=== PATIENT | female | born 1965 | race Caucasian/White ===

== ENCOUNTER → 2017-04-21 | Outpatient (CLI) | payer BC ==
--- NOTE | 2017-04-21 13:36 | P.HPOB ---
History of Present Illness H&P Date: 04/21/17 Chief Complaint: The patient is here for her routine gynecologic exam and mammogram. This is a 51-year-old with an LMP of 2013. She is status post endometrial ablation in 2011. She feels slightly warm at night on occasion but is otherwise without complaints. She denies any postmenopausal bleeding. Review of Systems Weight has been stable. She denies respiratory, cardiac or G.I. problems. Past Medical History Past Medical History: Hyperlipidemia History of Any Multi-Drug Resistant Organisms: None Reported Past Surgical History: Breast Surgery (Right breast biopsy in 2013 which was benign.), Section ( x2), Hernia Repair, Tubal Ligation Additional Past Surgical History / Comment(s): D&C in the past. Past Psychological History: No Psychological Hx Reported Smoking Status: Never smoker Past Alcohol Use History: Occasional (Averaging 2 per month.) Past Drug Use History: None Reported Additional History: She is now working at [employer]. - Past Family History Father Family Medical History: Myocardial Infarction ([place]) Mother Family Medical History: Cancer (She believes her mother had uterine cancer.) Grandparents History Unknown: Yes Family Medical History: No Reported History Additional Family Medical History / Comment(s): Grandparents had heart disease. Medications and Allergies Home Medications and Allergies Comment(s): Vitamin D3 5000 units daily Home Medications Medication Instructions Recorded Confirmed Type Atorvastatin [Lipitor] 20 mg PO DAILY 04/21/17 04/21/17 History Exam - Vital Signs Vital signs: Blood pressure 104/67, height 5'2", weight 139 pounds, BMI 25, temperature and 96.7, pulse 64 This is a well-developed well-nourished white female who is alert and oriented times 3 in no acute distress. HEENT: Within normal limits. NECK: Supple without mass or thyromegaly. CHEST AND LUNGS: Clear to auscultation. HEART: Regular rate and rhythm. BREASTS: Are without mass or discharge. AXILLARY EXAM: Negative for adenopathy. BACK: Negative for CVA tenderness. ABDOMEN: Soft, nontender, without palpable masses. PELVIC EXAM: Normal external genitalia with minimal atrophy. Cervix and vagina appear normal. There is no unusual discharge. There is no evidence of prolapse. The uterus is midposition, nongravid size and nontender. There are no palpable adnexal masses or tenderness. RECTAL EXAM: recto vaginal exam is negative for mass or tenderness and is negative for occult blood. EXTREMITIES: Nontender. IMPRESSION: 1. 51-year-old menopausal female with normal gynecologic exam PLAN: 1. Smear was deferred since she had a normal one less than 2 years ago. 2. Self breast examination was discussed. 3. Mammogram will be done today. 4. Versus prevention was discussed. 5. She will return in one year.
--- NOTE | 2017-04-23 08:05 | MM ---
Reason for exam: screening (asymptomatic). Last mammogram was performed 7 months ago. History: Patient is postmenopausal and has history of high-risk lesion on a previous biopsy at age 47. Benign US biopsy breast VAD LT of the left breast, March 28, 2016. Excisional biopsy, March 2013. High risk right breast needle localzation of both breasts, January 24, 2013. Benign right mammotome panel of the right breast, January 03, 2013. Took hormonal contraceptives for 1 year. Physical Findings: A clinical breast exam by your physician is recommended on an annual basis and results should be correlated with mammographic findings. MG 3D Screening Mammo W/Cad Bilateral CC and MLO view(s) were taken. XCCL view(s) were taken of the right breast. Prior study comparison: September 19, 2016, left breast MG diagnostic mammo LT w CAD. March 28, 2016, left breast MG diagnostic mammo LT wo CAD. The breast tissue is heterogeneously dense. This may lower the sensitivity of mammography. There is no discrete abnormality. No significant changes when compared with prior studies. ASSESSMENT: Negative, BI-RAD 1 RECOMMENDATION: Routine screening mammogram of both breasts in 1 year.
== END | disposition home or self-care (01) ==
LOC: WWCWWP 12:31
PROVIDERS: ATTEND Obstetrics & Gynecology
DX: Z12.31 Encounter for screening mammogram for malignant neoplasm of breast (principal)
CPT/HCPCS: 77063; G0202

== ENCOUNTER → 2018-06-02 | Outpatient (CLI) | payer BC ==
[2018-06-02 08:29] VITALS: BP 112/55; PULSE 73; TEMP 96.9; BMI 25.6
--- NOTE | 2018-06-02 09:29 | P.HPOB ---
History of Present Illness H&P Date: 06/02/18 Chief Complaint: The patient is here for her routine gynecologic exam and mammogram. This is a 52-year-old 012 with an LMP of 2013. The patient is without gynecologic complaints and denies any postmenopausal bleeding. Review of Systems The patient's weight has been stable over the last year. She denies respiratory , cardiac, or G.I. problems. 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 She had an endometrial ablation in 2011. History of Any Multi-Drug Resistant Organisms: None Reported Past Surgical History: Breast Surgery (Right breast biopsy 2015), Section (x2), Hernia Repair, Tubal Ligation, Uterine Ablation (2011) Additional Past Surgical History / Comment(s): D&C in the past. Colonoscopy 2016(rec. rpt 5yrs). 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 - Past Family History Father Family Medical History: Hypertension, Myocardial Infarction ([place]) Mother Family Medical History: Cancer, Hypertension Additional Family Medical History / Comment(s): Uterine cancer in her 70s. Grandparents History Unknown: Yes Family Medical History: No Reported History Additional Family Medical History / Comment(s): Grandparents had heart disease. Medications and Allergies Home Medications Medication Instructions Recorded Confirmed Type Cholecalciferol [Vitamin D3] 1,000 unit PO DAILY 06/02/18 06/02/18 History Multivitamin [Multivitamins Adult PO DAILY 06/02/18 06/02/18 History Gummies] Allergies Allergy/AdvReac Type Severity Reaction Status Date / Time No Known Allergies Allergy Unverified 06/02/18 08:24 Exam Vital Signs Temp Pulse BP 06/02/18 08:26 96.9 F L 73 112/55 Intake and Output 06/01/18 06/02/18 06/02/18 22:59 06:59 14:59 Other: Weight 63.503 kg Height 5'2", weight 140 pounds, BMI 25.6. This is a well-developed well-nourished white female who is alert and oriented times 3 in no acute distress. HEENT: Within normal limits. NECK: Supple without mass or thyromegaly. CHEST AND LUNGS: Clear to auscultation. HEART: Regular rate and rhythm. BREASTS: Are without mass or discharge. AXILLARY EXAM: Negative for adenopathy. BACK: Negative for CVA tenderness. ABDOMEN: Soft, nontender, without palpable masses. PELVIC EXAM: Normal external genitalia with mild atrophy. Cervix and vagina appear normal with mild atrophy. The cervix appears nulliparous and is mildly stenotic. There is no unusual discharge. There is no evidence of prolapse. The uterus is midposition, nongravid size and nontender. There are no palpable adnexal masses or tenderness. RECTAL EXAM: rectovaginal exam is negative for mass or tenderness and is negative for occult blood. EXTREMITIES: Nontender. IMPRESSION: 1. 52-year-old menopausal female with normal gynecologic exam. PLAN: 1. Pap smear was performed. 2. Self breast awareness was discussed with the patient. 3. Screening mammogram will be done today. 4. Osteoporosis prevention was discussed. I have stressed the importance of adequate calcium, vitamin D and regular exercise. Recommended amounts of calcium and vitamin D were also discussed. 5. She will return in one year.
--- NOTE | 2018-06-02 11:56 | MM ---
Reason for exam: screening (asymptomatic). Last mammogram was performed 1 year and 1 month ago. History: Patient is postmenopausal and has history of high-risk lesion on a previous biopsy at age 47. Benign US biopsy breast VAD LT of the left breast, March 28, 2016. Excisional biopsy, March 2013. High risk right breast needle localzation of both breasts, January 24, 2013. Benign right mammotome panel of the right breast, January 03, 2013. Took hormonal contraceptives for 1 year. Physical Findings: A clinical breast exam by your physician is recommended on an annual basis and results should be correlated with mammographic findings. MG 3D Screening Mammo W/Cad Bilateral CC and MLO view(s) were taken. Prior study comparison: April 21, 2017, bilateral MG 3d screening mammo w/cad. September 19, 2016, left breast MG diagnostic mammo LT w CAD. The breast tissue is heterogeneously dense. This may lower the sensitivity of mammography. There are benign appearing round grouped calcifications in the right breast. Previous mammotome biopsy in the left breast. There is no discrete abnormality. ASSESSMENT: Benign, BI-RAD 2 RECOMMENDATION: Routine screening mammogram of both breasts in 1 year.
== END ==
LOC: WWCWWP 07:54
PROVIDERS: ATTEND Obstetrics & Gynecology
DX: Z12.31 Encounter for screening mammogram for malignant neoplasm of breast (principal)
CPT/HCPCS: 77063; 77067

== ENCOUNTER → 2019-07-05 | Outpatient (CLI) | payer BC ==
[2019-07-05 09:23] VITALS: BP 109/72; PULSE 84; RESP 16; TEMP 98.4
--- NOTE | 2019-07-05 09:47 | P.HPOB ---
History of Present Illness H&P Date: 07/05/19 Chief Complaint: The patient is here for her routine gynecologic exam and ma mmogram. This is a 53-year-old with an LMP of 2013. The patient is without gynecologic complaints and denies any postmenopausal bleeding. Review of Systems The patient has gained 7 pounds over the last year. She denies respiratory, cardiac, or G.I. problems. Past Medical History Past Medical History: Hyperlipidemia, Osteoarthritis (OA) Additional Past Medical History / Comment(s): Arthritis of the right hip. 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 She had an endometrial ablation in 2011. History of Any Multi-Drug Resistant Organisms: None Reported Past Surgical History: Breast Surgery, Section, Hernia Repair, Tubal Ligation, Uterine Ablation Additional Past Surgical History / Comment(s): D&C in the past. Right breast biopsy. Colonoscopy 2015(rec. rpt 5yrs). 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 - Past Family History Father Family Medical History: Hypertension, Myocardial Infarction ([place]) Mother Family Medical History: Cancer, Diabetes Mellitus, Hypertension Additional Family Medical History / Comment(s): Uterine cancer in her 70s. Grandparents History Unknown: Yes Family Medical History: No Reported History Additional Family Medical History / Comment(s): Grandparents had heart disease. Medications and Allergies Home Medications Medication Instructions Recorded Confirmed Type Cholecalciferol [Vitamin D3] 1,000 unit PO DAILY 06/02/18 07/05/19 History Multivitamin [Multivitamins Adult 1 tab PO DAILY 06/02/18 07/05/19 History Gummies] Allergies Allergy/AdvReac Type Severity Reaction Status Date / Time latex Allergy Swelling Unverified 07/05/19 09:20 Exam Vital Signs Temp Pulse Resp BP Pulse Ox 07/05/19 09:21 98.4 F 84 16 109/72 98 Intake and Output 07/04/19 07/05/19 07/05/19 22:59 06:59 14:59 Other: Weight 66.678 kg Height 5 feet 2 inches, weight 147 pounds, BMI 26.9. This is a well-developed well-nourished white female who is alert and oriented times 3 in no acute distress. HEENT: Within normal limits. NECK: Supple without mass or thyromegaly. CHEST AND LUNGS: Clear to auscultation. HEART: Regular rate and rhythm. BREASTS: Are without mass or discharge. AXILLARY EXAM: Negative for adenopathy. BACK: Negative for CVA tenderness. ABDOMEN: Soft, nontender, without palpable masses. PELVIC EXAM: Normal external genitalia with minimal atrophy. Cervix and vagina appear normal of minimal atrophy. There is no unusual discharge. There is no evidence of prolapse. The uterus is anterior, nongravid size and nontender. There are no palpable adnexal masses or tenderness. RECTAL EXAM: Rectovaginal exam is negative for mass or tenderness and is negative for occult blood. EXTREMITIES: Nontender. IMPRESSION: 1. 53-year-old menopausal female with normal gynecologic exam. PLAN: 1. Pap smear was deferred since she had a normal one on 06/02/2018. 2. Self breast awareness was discussed with the patient. 3. Screening mammogram will be done today. 4. Osteoporosis prevention was discussed. I have stressed the importance of adequate calcium, vitamin D and regular exercise. Recommended amounts of calcium and vitamin D were also discussed. 5. She was advised to return in one year for her annual well woman exam.
--- NOTE | 2019-07-05 13:44 | MM ---
Reason for exam: screening (asymptomatic). Last mammogram was performed 1 year and 1 month ago. History: Patient is postmenopausal and has history of high-risk lesion on a previous biopsy at age 47. Benign US biopsy breast VAD LT of the left breast, March 28, 2016. Excisional biopsy, March 2013. High risk right breast needle localzation of both breasts, January 24, 2013. Benign right mammotome panel of the right breast, January 03, 2013. Took hormonal contraceptives for 1 year. Physical Findings: A clinical breast exam by your physician is recommended on an annual basis and results should be correlated with mammographic findings. MG 3D Screening Mammo W/Cad Bilateral CC and MLO view(s) were taken. Prior study comparison: June 02, 2018, bilateral MG 3d screening mammo w/cad. April 21, 2017, bilateral MG 3d screening mammo w/cad. The breast tissue is heterogeneously dense. This may lower the sensitivity of mammography. Finding: There are typically benign round, grouped/clustered calcifications in the middle, posterior, central position of the right breast. Previous mammotome biopsy in the left breast. There is no discrete abnormality. ASSESSMENT: Benign, BI-RAD 2 RECOMMENDATION: Routine screening mammogram of both breasts in 1 year.
== END | disposition home or self-care (01) ==
LOC: WWCWWP 09:05
PROVIDERS: ATTEND Obstetrics & Gynecology
DX: Z12.31 Encounter for screening mammogram for malignant neoplasm of breast (principal)
CPT/HCPCS: 77063; 77067

== ENCOUNTER → 2020-09-18 | Outpatient (CLI) | payer BC ==
[2020-09-18 08:09] VITALS: BP 128/80; PULSE 81; RESP 18; TEMP 98.4
--- NOTE | 2020-09-18 08:40 | P.HPOB ---
History of Present Illness H&P Date: 09/18/20 Chief Complaint: The patient is here for her routine gynecologic exam and ma mmogram. This is a 55-year-old with an LMP of 2013. The patient is without gynecologic complaints and denies any postmenopausal bleeding. Review of Systems The patient's weight has been stable over the last year. She denies respiratory, cardiac, or G.I. problems. Past Medical History Past Medical History: Hyperlipidemia, Osteoarthritis (OA) Additional Past Medical History / Comment(s): Arthritis of the right hip. 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 She had an endometrial ablation in 2011. History of Any Multi-Drug Resistant Organisms: None Reported Past Surgical History: Breast Surgery, Section, Hernia Repair, Tubal Ligation, Uterine Ablation Additional Past Surgical History / Comment(s): D&C in the past. Right breast biopsy. Colonoscopy 2015(rec. rpt 5yrs). 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 - Past Family History Father Family Medical History: Hypertension, Myocardial Infarction ([place]) Mother Family Medical History: Cancer, Diabetes Mellitus, Hypertension Additional Family Medical History / Comment(s): Uterine cancer in her 70s. Grandparents History Unknown: Yes Family Medical History: No Reported History Additional Family Medical History / Comment(s): Grandparents had heart disease. Medications and Allergies Home Medications Medication Instructions Recorded Confirmed Type Cholecalciferol [Vitamin D3] 1,000 unit PO DAILY 06/02/18 09/18/20 History Multivitamin [Multivitamins Adult 1 tab PO DAILY 06/02/18 09/18/20 History Gummies] Allergies Allergy/AdvReac Type Severity Reaction Status Date / Time latex Allergy Swelling Unverified 09/18/20 08:02 Exam Vital Signs Temp Pulse Resp BP Pulse Ox 09/18/20 07:57 98.4 F 81 18 128/80 99 Intake and Output 09/17/20 09/18/20 09/18/20 22:59 06:59 14:59 Other: Weight 67.585 kg Height 5 feet 2-1/2 inches, weight 149 pounds, BMI 26.8. This is a well-developed well-nourished white female who is alert and oriented times 3 in no acute distress. HEENT: Within normal limits. NECK: Supple without mass or thyromegaly. CHEST AND LUNGS: Clear to auscultation. HEART: Regular rate and rhythm. BREASTS: Are without mass or discharge. AXILLARY EXAM: Negative for adenopathy. BACK: Negative for CVA tenderness. ABDOMEN: Soft, nontender, without palpable masses. PELVIC EXAM: Normal external genitalia with mild atrophy. Cervix and vagina appear normal with mild atrophy. The cervix is nulliparous appearing and slightly stenotic secondary to atrophy. There is no unusual discharge. There is no evidence of prolapse. The uterus is midposition, nongravid size and nontender. There are no palpable adnexal masses or tenderness. RECTAL EXAM: Rectovaginal exam is negative for mass or tenderness and is negative for occult blood. EXTREMITIES: Nontender. IMPRESSION: 1. 55-year-old menopausal female with normal gynecologic exam. PLAN: 1. Pap smear cotest was performed. 2. Self breast awareness was discussed with the patient. 3. Screening mammogram will be done today. 4. Osteoporosis prevention was discussed. I have stressed the importance of adequate calcium, vitamin D and regular exercise. Recommended amounts of calcium and vitamin D were also discussed. 5. Her last colonoscopy was about 5 years ago and she had benign polyps removed at that time. She is probably due for another colonoscopy and will discuss this with her PCP. 6. She was advised to return in one year for her annual well woman exam.
--- NOTE | 2020-09-19 09:25 | MM ---
Reason for exam: screening (asymptomatic). Last mammogram was performed 1 year and 3 months ago. History: Patient is postmenopausal and has history of high-risk lesion on a previous biopsy at age 47. Benign US biopsy breast VAD LT of the left breast, March 28, 2016. Excisional biopsy, March 2013. High risk right breast needle localzation of both breasts, January 24, 2013. Benign right mammotome panel of the right breast, January 03, 2013. Took hormonal contraceptives for 1 year. Physical Findings: A clinical breast exam by your physician is recommended on an annual basis and results should be correlated with mammographic findings. MG 3D Screening Mammo W/Cad Bilateral CC and MLO view(s) were taken. Prior study comparison: July 05, 2019, bilateral MG 3d screening mammo w/cad. June 02, 2018, bilateral MG 3d screening mammo w/cad. The breast tissue is heterogeneously dense. This may lower the sensitivity of mammography. Stable benign calcifications. There is no discrete abnormality. No significant changes when compared with prior studies. ASSESSMENT: Benign, BI-RAD 2 RECOMMENDATION: Routine screening mammogram of both breasts in 1 year.
== END | disposition home or self-care (01) ==
LOC: WWCWWP 07:57
PROVIDERS: ATTEND Obstetrics & Gynecology
DX: Z12.31 Encounter for screening mammogram for malignant neoplasm of breast (principal); E78.5 Hyperlipidemia, unspecified; M19.90 Unspecified osteoarthritis, unspecified site; Z78.0 Asymptomatic menopausal state
CPT/HCPCS: 77063; 77067

== ENCOUNTER → 2022-03-25 | Outpatient (CLI) | payer OTHER ==
[2022-03-25 16:00] VITALS: BP 115/73; PULSE 81; RESP 17; TEMP 97.6
--- NOTE | 2022-03-25 16:27 | P.HPOB ---
History of Present Illness H&P Date: 03/25/22 Chief Complaint: The patient is here for her routine gynecologic exam and ma mmogram. This is a 56-year-old 012 with an LMP of 2013. The patient is without gynecologic complaints and denies any postmenopausal bleeding. Review of Systems The patient's weight has been stable over the last year. She denies respiratory, cardiac, or G.I. problems. Past Medical History Past Medical History: Hyperlipidemia, Osteoarthritis (OA) Additional Past Medical History / Comment(s): Arthritis of the right hip. 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 She had an endometrial ablation in 2011. History of Any Multi-Drug Resistant Organisms: None Reported Past Surgical History: Breast Surgery, Section, Hernia Repair, Tubal Ligation, Uterine Ablation Additional Past Surgical History / Comment(s): D&C in the past. Right breast biopsy. Colonoscopy 2015(rec. rpt 5yrs). Past Psychological History: No Psychological Hx Reported Smoking Status: Never smoker Past Alcohol Use History: Occasional (2 or 3 per month) Past Drug Use History: None Reported Additional History: She has been since 1995. 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 - Past Family History Father Family Medical History: Hypertension, Myocardial Infarction ([place]) Mother Family Medical History: Cancer, Diabetes Mellitus, Hypertension Additional Family Medical History / Comment(s): Uterine cancer in her 70s. Grandparents History Unknown: Yes Family Medical History: No Reported History Additional Family Medical History / Comment(s): Grandparents had heart disease. Medications and Allergies Home Medications Medication Instructions Recorded Confirmed Type Cholecalciferol [Vitamin D3] 1,000 unit PO DAILY 06/02/18 03/25/22 History Multivitamin [Multivitamins Adult 1 tab PO DAILY 06/02/18 03/25/22 History Gummies] Allergies Allergy/AdvReac Type Severity Reaction Status Date / Time latex Allergy Swelling Unverified 03/25/22 15:56 Exam Vital Signs Temp Pulse Resp BP Pulse Ox 03/25/22 15:57 97.6 F 81 17 115/73 99 Intake and Output 03/25/22 03/25/22 03/25/22 06:59 14:59 22:59 Other: Weight 67.132 kg Height 5 feet 2 inches, weight 148 pounds, BMI 27.1. This is a well-developed well-nourished white female who is alert and oriented times 3 in no acute distress. HEENT: Within normal limits. NECK: Supple without mass or thyromegaly. CHEST AND LUNGS: Clear to auscultation. HEART: Regular rate and rhythm. BREASTS: Are without mass or discharge. AXILLARY EXAM: Negative for adenopathy. BACK: Negative for CVA tenderness. ABDOMEN: Soft, nontender, without palpable masses. PELVIC EXAM: Normal external genitalia with mild atrophy. Cervix and vagina appear normal with mild atrophy. There is no unusual discharge. There is no evidence of prolapse. The uterus is midposition, nongravid size and nontender. There are no palpable adnexal masses or tenderness. RECTAL EXAM: Rectovaginal exam is negative for mass or tenderness and is negative for occult blood. EXTREMITIES: Nontender. IMPRESSION: 1. 56-year-old menopausal female with normal gynecologic exam. PLAN: 1. Pap smear was deferred since she had a normal Pap smear cotest on 09/18/2020. 2. Self breast awareness was discussed with the patient. We have also discussed symptoms associated with inflammatory breast cancer. 3. Screening mammogram was done today. 4. Osteoporosis prevention was discussed. I have stressed the importance of adequate calcium, vitamin D and regular exercise. Recommended amounts of calcium and vitamin D were also discussed. 5. She is due for her colonoscopy and she will arrange this through her PCP. 6. She has completed her Covid vaccination series and has received 2 boosters. 7. She was advised to return in one year for her annual well woman exam.
--- NOTE | 2022-03-26 21:07 | MM ---
Reason for Exam: Screening (asymptomatic). Last mammogram was performed 1 year(s) and 6 month(s) ago. Patient History: Menarche at age 10. First Full-Term at age 17. Postmenopausal. Patient used Hormonal Contraceptives for 1 year. 03/2013, Excisional Biopsy. 03/28/2016, Benign Core Biopsy on the left side. 01/24/2013, Bilateral High risk Excisional Biopsy. 01/03/2013, Benign Core Biopsy on the right side. Risk Values: Pilar 5 year model risk: 1.5%. NCI Lifetime model risk: 9.5%. Prior Study Comparison: 06/02/2018 Bilateral Screening Mammogram, [facility]. 07/05/2019 Bilateral Screening Mammogram, [facility]. 09/18/2020 Bilateral Screening Mammogram, [facility]. Tissue Density: There are scattered fibroglandular densities. Findings: Analyzed By CAD. Microclip anterior left breast from prior biopsy. Tortuous vessel lateral right CC view unchanged. No significant change from prior exams. Overall Assessment: Negative, BI-RAD 1 Management: Screening Mammogram of both breasts in 1 year. 1. Patient should continue monthly self breast exams. 2. A clinical breast exam by your physician is recommended on an annual basis. 3. This exam should not preclude additional follow-up of suspicious palpable abnormalities. Electronically signed and approved by: Megan Gray M.D. Radiologist
== END ==
LOC: WWCWWP 15:31
PROVIDERS: ATTEND Obstetrics & Gynecology
DX: Z01.419 Encounter for gynecological examination (general) (routine) without abnormal findings (principal); Z12.31 Encounter for screening mammogram for malignant neoplasm of breast; Z78.0 Asymptomatic menopausal state; Z91.040 Latex allergy status; E66.9 Obesity, unspecified; Z68.27 Body mass index [BMI] 27.0-27.9, adult
CPT/HCPCS: 77063; 77067

== ENCOUNTER → 2023-05-20 | Outpatient (CLI) | payer BC ==
[2023-05-20 09:31] VITALS: BP 117/75; PULSE 75; RESP 16; TEMP 98.1
--- NOTE | 2023-05-20 10:01 | P.HPOB ---
History of Present Illness H&P Date: 05/20/23 Chief Complaint: The patient is here for her routine gynecologic exam and ma mmogram. This is a 57-year-old 012 with an LMP of 2013. The patient has noticed a small slightly scaly skin change on the lateral side of the left breast. She is wondering if this was a sign of the inflammatory breast cancer that we have discussed in the past. She is otherwise without complaints. Review of Systems The patient's weight has been stable over the last year. She denies respiratory, cardiac, or G.I. problems. Past Medical History Past Medical History: Hyperlipidemia, Osteoarthritis (OA) Additional Past Medical History / Comment(s): Arthritis of the right hip. PAST [employer] P[employer]ER HISTORY: She has no history of STDs. She had an endometrial ablation in 2011. History of Any Multi-Drug Resistant Organisms: None Reported Past Surgical History: Breast Surgery, Section, Hernia Repair, Tubal Ligation, Uterine Ablation Additional Past Surgical History / Comment(s): D&C in the past. Right breast biopsy. Colonoscopy 2016(rec. rpt 5yrs). Past Psychological History: No Psychological Hx Reported Smoking Status: Never smoker Past Alcohol Use History: Occasional (3 drinks per month.) Past Drug Use History: None Reported Additional History: She has been since 1995. Her was recently diagnosed with Parkinson's disease. 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 - Past Family History Father Family Medical History: Hypertension, Myocardial Infarction (NM) Mother Family Medical History: Cancer, Diabetes Mellitus, Hypertension Additional Family Medical History / Comment(s): Uterine cancer in her 70s. Grandparents History Unknown: Yes Family Medical History: No Reported History Additional Family Medical History / Comment(s): Grandparents had heart disease. Medications and Allergies Home Medications Medication Instructions Recorded Confirmed Type Cholecalciferol [Vitamin D3] 1,000 unit PO DAILY 06/02/18 05/20/23 History Multivitamin [Multivitamins Adult 1 tab PO DAILY 06/02/18 05/20/23 History Gummies] Aspirin 81 mg PO DAILY 05/20/23 05/20/23 History Calcium Carb/Vitamin D3/Vit K1 1 tab PO DAILY 05/20/23 05/20/23 History [Calcium-Vit D3-K1 650 mg Chew] Phytonadione [Vitamin K] 5 mg PO DAILY 05/20/23 05/20/23 History Turmeric Root Extract [Turmeric] 500 mg PO DAILY 05/20/23 05/20/23 History Allergies Allergy/AdvReac Type Severity Reaction Status Date / Time latex Allergy Swelling Unverified 05/20/23 09:17 Exam Vital Signs Temp Pulse Resp BP Pulse Ox 05/20/23 09:19 98.1 F 75 16 117/75 100 Intake and Output 05/19/23 05/20/23 05/20/23 22:59 06:59 14:59 Other: Weight 66.224 kg Height 5 feet 2 inches, weight 146 pounds, BMI 26.7. This is a well-developed well-nourished white female who is alert and oriented times 3 in no acute distress. HEENT: Within normal limits. NECK: Supple without mass or thyromegaly. CHEST AND LUNGS: Clear to auscultation. HEART: Regular rate and rhythm. BREASTS: Are without mass or discharge. The patient has multiple small benign- appearing moles on the breasts. On the lateral aspect of the left breast there is a small scaly patch of skin measuring approximately 0.5 x 0.5 cm. This has the appearance of early seborrheic keratosis. AXILLARY EXAM: Negative for adenopathy. BACK: Negative for CVA tenderness. ABDOMEN: Soft, nontender, without palpable masses. PELVIC EXAM: Normal external genitalia with mild atrophy. Cervix and vagina appear normal mild atrophy. There is no unusual discharge. There is no evidence of prolapse. The uterus is midposition, nongravid size and nontender. There are no palpable adnexal masses or tenderness. RECTAL EXAM: Rectovaginal exam is negative for mass or tenderness and is negative for occult blood. EXTREMITIES: Nontender. IMPRESSION: 1. 57-year-old menopausal female with normal gynecologic exam. 2. Small area of probable seborrheic keratosis on the lateral aspect of the left breast measuring approximately 0.5 x 0.5 cm. PLAN: 1. Pap smear was deferred since she had a negative Pap smear cotest on 09/18/2020. 2. Self breast awareness was discussed with the patient. We have also discussed symptoms associated with inflammatory breast cancer. The small skin lesion appears benign and this does not represent findings related to inflammatory breast cancer. Because of the multiple moles that she has I recommended that she see her sales operations analyst on a regular basis for regular skin checks yearly. She says she has seen Dr. Martinez in the past. 3. Screening mammogram will be done today. 4. Osteoporosis prevention was discussed. I have stressed the importance of adequate calcium, vitamin D and regular exercise. Recommended amounts of calcium and vitamin D were also discussed. 5. My records indicate her last colonoscopy was in 2015. The patient states she believes she had one done more recent than that, but she will check her records. If her last one was in 2015 and repeated in 5 years was recommended, I recommended that she arrange this through her PCP. 6. She was advised to return in one year for her annual well woman exam.
== END ==
LOC: WWCWWP 08:54
PROVIDERS: ATTEND Obstetrics & Gynecology
DX: Z12.31 Encounter for screening mammogram for malignant neoplasm of breast (principal); E78.5 Hyperlipidemia, unspecified; M19.90 Unspecified osteoarthritis, unspecified site; M16.11 Unilateral primary osteoarthritis, right hip; Z42.1 Encounter for breast reconstruction following mastectomy; Z87.19 Personal history of other diseases of the digestive system; G20.A1 Parkinson's disease without dyskinesia, without mention of fluctuations; Z78.0 Asymptomatic menopausal state; Z91.040 Latex allergy status; Z79.82 Long term (current) use of aspirin
CPT/HCPCS: 77063; 77067